=== PATIENT | male | born 1985 | race Two or more races ===

== ENCOUNTER 2023-09-16 15:00 | Emergency (ER) | payer OTHER ==
[~2023-09-16] VITALS: Ht 182.9 cm; Wt 88.7 kg
[2023-09-16] MEDS ORDERED: CYCL-614 PO (22:45)
[2023-09-16] MEDS ORDERED: IBUP-1456 PO (22:45)
[2023-09-16 22:50] VITALS: BP 142/78; PULSE 78; RESP 18; TEMP 98; O2SAT 97
== END 2023-09-16 23:00 | disposition home or self-care (01) ==
LOC: ER 15:00
DX: S39.012A Strain of muscle, fascia and tendon of lower back, initial encounter (principal); S09.8XXA Other specified injuries of head, initial encounter; Z98.890 Other specified postprocedural states; Z79.899 Other long term (current) drug therapy; V89.2XXA Person injured in unspecified motor-vehicle accident, traffic, initial encounter; Y93.55 Activity, bike riding; Y92.89 Other specified places as the place of occurrence of the external cause; Y99.8 Other external cause status